=== PATIENT | male | born 1960 | race Hispanic/Latino ===

== ENCOUNTER 2019-12-08 15:39 | Emergency (ER) | payer OTHER ==
[2019-12-08 17:15] VITALS: BP 140/74
== END 2019-12-08 17:15 | disposition home or self-care (01) | DRG 605 ==
LOC: ED 15:39
DX: S90.122A Contusion of left lesser toe(s) without damage to nail, initial encounter (principal); X50.0XXA Overexertion from strenuous movement or load, initial encounter; Y93.89 Activity, other specified; Y92.79 Other farm location as the place of occurrence of the external cause; Y99.0 Civilian activity done for income or pay